=== PATIENT | male | born 1950 | race Caucasian/White ===

== ENCOUNTER → 2016-10-12 | Outpatient (CLI) | payer OTHER ==
--- NOTE | 2016-10-12 16:37 | MR ---
Unenhanced MRI of the Cervical Spine Clinical History: 66-year-old male with neck pain, cervical spondylosis, and spondylolisthesis. ICD 10 Diagnostic Codes: M47.812, M43.10, and R52. Technique: Sagittal T1, FSE T2, and STIR sequences were obtained from the level of the clivus caudall y to the T5 level, with images supplemented by stacked axial 3-D FSE T2 and 3-D COSMIC sequences. Comparison Study: None available. Findings: The cervical vertebral body heights are maintained. There is 4 mm of C3 posterior listhesis of C4, and 4 mm of C7 anterolisthesis above T1. There are prominent ventral traction osteophytes fro m C3 through C7, and there is degenerative disk desiccation at all levels, as well as [id number] ere degenerative disk space narrowing from C3-C4 through C7-T1. The spinal cord caliber and signal ar e normal, with no edema, myelomalacia, or syrinx. The visualized infratentorial structures and the pr evertebral soft tissues are normal. The craniocervical junction is normal, with no cerebellar ectopia . Bone marrow signal is notable for some cortical endplates degenerative change at several levels. Th ere is no marrow infiltrative process. C1-C2 level there is a normal appearance to the predental space. There is no central canal stenosis. At the C2-C3 level, there is some minimal dorsal disk osteophyte complex centrally. There is asymmetr ic facet hypertrophy on the right with uncovertebral osteophyte formation resulting in moderate right neural foraminal stenosis. At the C3-C4 level, there is the aforementioned trace posterolisthesis. There is advanced degenerativ e spondylosis and disk space narrowing with a dorsal disk osteophyte complex. This results in a moder ate central canal stenosis, narrowing the canal diameter to 9.5 mm. There is facet hypertrophy and un covertebral osteophyte formation, resulting in moderate bilateral neural foraminal stenosis. At C4-C5 level, there is degenerative disk space narrowing and broad-based circumferential disk bulgi ng; however, there is ample CSF ventral and dorsal the cord. Uncovertebral osteophyte formation and f acet hypertrophy results in severe bilateral neural foraminal stenosis. At the C5-C6 level, there is advanced degenerative disk disease with a dorsal disk osteophyte complex and broad-based circumferential disk bulging, resulting in [id number] central canal stenosis. Uncovertebral osteophyte formation and facet hypertrophy result in severe bilateral neural foraminal stenosis. At the C6-C7 level, there is a dorsal disk osteophyte complex, resulting in mild central canal stenos is. Uncovertebral osteophyte formation and facet hypertrophy result in severe right and [id number]-aflrf ate left neural foraminal stenosis. At the C7-T1 level, there is advanced degenerative disk space narrowing with the aforementioned mild anterolisthesis. There is some facet hypertrophy and uncovertebral osteophyte formation resulting in [id number] bilateral neural foraminal stenosis. The central canal remains patent. The visualized upper thoracic spine is notable only for some mild ligamentum flavum thickening at the T1-T2 level; however, there is an ample amount of CSF ventral and dorsal to the cord. Impression: Multilevel advanced degenerative spondylosis and disk disease with accompanying uncoverte bral osteophytosis and facet hypertrophy resulting in central canal and neural foraminal stenoses, mo st pronounced from the C3-C4 through C7-T1 levels, as above-detailed.
== END ==
LOC: FIMAGING 14:22
PROVIDERS: ATTEND Family Medicine
DX: M50.31 Other cervical disc degeneration, high cervical region (principal); M47.812 Spondylosis without myelopathy or radiculopathy, cervical region; M48.02 Spinal stenosis, cervical region